=== PATIENT | female | born 1975 ===

== ENCOUNTER 2022-03-29 12:38 | Outpatient (REF) | payer MEDICAID, SELFPAY ==
[2022-03-29 15:39] LABS: Anion Gap 5.7 mmol/L (3-11); BUN 10 mg/dL (7-18); CO2 29.3 mmol/L (21.0-32.0); CREATININE 0.7 mg/dL (0.55-1.02); Calcium 9.2 mg/dL (8.5-10.1); Calculated LDL 81 mg/dL (<100); Chloride 102 mmol/L (98-107); Cholesterol 176 mg/dL (<200); Glucose 82 mg/dL (74-106); HDL Cholesterol 88 mg/dL (40-60); Potassium 4.1 mmol/L (3.5-5.1); Sodium 137 mmol/L (136-145); TSH 1.72 uIU/mL (0.36-3.74); Triglyceride 35 mg/dL (<150)
== END 2022-03-29 12:39 | disposition home or self-care (01) ==
LOC: NCHCN 12:38
PROVIDERS: Visit Provider Registered Nurse
DX: Z13.29 Encounter for screening for other suspected endocrine disorder (principal); Z13.220 Encounter for screening for lipoid disorders; Z13.228 Encounter for screening for other metabolic disorders; Z00.00 Encounter for general adult medical examination without abnormal findings
CPT/HCPCS: 80048; 80061; 84443

== ENCOUNTER 2023-08-19 10:34 | Outpatient (REF) | payer MEDICAID, SELFPAY ==
[2023-08-19 16:01] LABS: Calculated LDL 79 mg/dL (<100); Cholesterol 160 mg/dL (<200); HDL Cholesterol 68 mg/dL (40-60); Triglyceride 66 mg/dL (<150)
[2023-08-19 16:23] LABS: FREE T4 0.94 ng/dL (0.76-1.46)
== END 2023-08-19 10:35 | disposition home or self-care (01) ==
LOC: NCHCN 10:34
PROVIDERS: Visit Provider Nurse Practitioner Family
DX: Z13.220 Encounter for screening for lipoid disorders (principal)
CPT/HCPCS: 80061; 84439; 84443